=== PATIENT | male | born 1990 | race Caucasian/White ===

== ENCOUNTER 2016-08-04 16:11 | Emergency (ER) | payer BC ==
[2016-08-04 16:19] VITALS: BP 104/67
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
== END 2016-08-04 19:46 | disposition home or self-care (01) ==
LOC: ED 16:11
DX: S06.0X0A Concussion without loss of consciousness, initial encounter (principal); W22.8XXA Striking against or struck by other objects, initial encounter; Y93.89 Activity, other specified; Y99.8 Other external cause status; Y92.89 Other specified places as the place of occurrence of the external cause
CPT/HCPCS: 99282